=== PATIENT | female | born 1965 | race Two or more races ===

== ENCOUNTER 2024-06-19 06:36 | Day surgery (SDC) | payer BC, SELFPAY | END 2024-06-19 10:20 | disposition home or self-care (01) | LOC: GI 06:36 | PROVIDERS: ATTENDING PHYSICIAN Internal Medicine Gastroenterology; FAMILY PHYSICIAN Internal Medicine | DX: Z12.11 Encounter for screening for malignant neoplasm of colon (principal); D12.2 Benign neoplasm of ascending colon; D12.5 Benign neoplasm of sigmoid colon; K62.1 Rectal polyp | CPT/HCPCS: 45385; 45380; 88305 ==